=== PATIENT | male | born 1985 | race Caucasian/White ===

== ENCOUNTER 2016-09-22 14:59 | Emergency (ER) | payer MEDICAID ==
[2016-09-22 15:16] VITALS: BP 128/71
--- NOTE | 2016-09-22 15:56 | EDM.PDOC ---
ED HPI GENERAL MEDICAL PROBLEM - General Chief Complaint: Skin Complaint Stated Complaint: LEFT EAR PAIN, REMOVE STITCHES Time Seen by Provider: 09/22/16 15:52 Source of Information: Reports: Patient, RN Notes Reviewed History Limitations: Reports: No Limitations - History of Present Illness INITIAL COMMENTS - FREE TEXT/NARRATIVE: 31-year-old gentleman presents emergency department today for suture removal, he had them placed in [facility] he is unsure of when they replaced he thinks it been in for over a week he admits that the sutures are placed secondary to trauma he's had no troubles with sutures, trauma was over the left ear - Related Data Allergies Allergy/AdvReac Type Severity Reaction Status Date / Time acetaminophen [From Percocet] Allergy Headache Verified 04/11/15 11:31 codeine Allergy Swelling Verified 04/11/15 11:31 oxycodone HCl [From Percocet] Allergy Headache Verified 04/11/15 11:31 Home Meds: Home Meds NK [No Known Home Meds] 04/11/15 [History] Past Medical History Musculoskeletal History: Reports: Fracture - Infectious Disease History Infectious Disease History: Reports: Chicken Pox, Shingles - Past Surgical History HEENT Surgical History: Reports: Adenoidectomy Social & Family History - Tobacco Use Smoking Status *Q: Never Smoker - Recreational Drug Use Recreational Drug Use: Yes Drug Use in Last 12 Months: Yes Recreational Drug Type: Reports: Marijuana/Hashish Recreational Drug Use Frequency: Daily ED ROS GENERAL - Review of Systems Review Of Systems: See Below Constitutional: Reports: No Symptoms Skin: Reports: Other (Sutures) ED EXAM, SKIN/RASH Exam: See Below Text/Narrative:: Examination of the right ear he does have approximately 9 sutures placed on the superior aspect of the ear itself there is a larger suture holding gauze in place all of these removed with splinter forceps and iris scissors, the wound itself is clean dry and intact healing well small amount maceration on the posterior aspect of the ear is appreciated Course - Vital Signs Last Recorded V/S: Last Vital Signs Temp 98.5 F 09/22/16 15:17 Pulse 86 09/22/16 15:17 Resp 16 09/22/16 15:17 BP 128/71 09/22/16 15:17 Pulse Ox 96 09/22/16 15:17 Departure - Departure Time of Disposition: 15:55 Disposition: Home, Self-Care 01 Condition: Good Clinical Impression: Visit for suture removal - Discharge Information Forms: ED Department Discharge Additional Instructions: Follow-up with primary care as needed - Assessment/Plan Plan: Assessment Acuity = acute Site and laterality = encounter for suture removal left ear Etiology = secondary to trauma Manifestations = none Location of injury = Home Lab values = none Plan Follow-up with primary care as needed Patient was in agreement with the plan all questions were answered, they were instructed to return to the emergency department or call for worsening symptoms. This note was dictated using [facility] voice recognition software please call with any questions.
== END 2016-09-22 16:03 | disposition home or self-care (01) ==
LOC: JP.ED 14:59
DX: S01.312D Laceration without foreign body of left ear, subsequent encounter (principal); Z88.5 Allergy status to narcotic agent; Z98.890 Other specified postprocedural states
CPT/HCPCS: 99282